=== PATIENT | female | born 1945 | race Caucasian/White ===

== ENCOUNTER 2016-10-03 14:53 | Emergency (ER) | payer OTHER ==
[~2016-10-03] VITALS: Ht 160 cm; Wt 70.0 kg
[2016-10-03 14:55] VITALS: BP 202/90; PULSE 67; RESP 18; TEMP 97.9; O2SAT 100
[2016-10-03 15:20] VITALS: O2SAT 100
[2016-10-03 15:21] VITALS: BP 204/98; PULSE 67; RESP 18; O2SAT 99
[2016-10-03] MEDS ORDERED: ROSU10 PO (15:28)
[2016-10-03] MEDS ORDERED: NAPR500T PO (15:28)
[2016-10-03] MEDS ORDERED: [UNRECOGNIZED DRUG - CODE] (15:28)
[2016-10-03] MEDS ORDERED: LACT1CAP18 (15:28)
[2016-10-03] MEDS ORDERED: LISI40TA PO (15:28)
[2016-10-03] MEDS ORDERED: MISO100T22 (15:28)
[2016-10-03] MEDS ORDERED: METO100T PO (15:28)
[2016-10-03] MEDS ORDERED: TRIA37.53 PO (15:28)
[2016-10-03] MEDS ORDERED: VITA20003 (15:28)
[2016-10-03] MEDS ORDERED: LUTE6TAB2 (15:28)
[2016-10-03] MEDS ORDERED: RANI150T PO (15:28)
[2016-10-03] MEDS ORDERED: TRAV0.00 EACH EYE (15:28)
[2016-10-03] MEDS ORDERED: SODIUM CHLOR 0.9% 1000 ML INJ 1,000 ML IV SCH (15:40)
[2016-10-03 15:49] LABS: BASOPHIL # 0.1 TH/MM3 (0-0.2); EOSINOPHIL # 0.4 TH/MM3 (0-0.4); EOSINOPHIL % 5.1 % (0.0-4.0); HEMATOCRIT 38.1 % (35.0-46.0); HEMO FLAGS DIFF FINAL; LYMPH % 25.5 % (9.0-44.0); LYMPHOCYTE # 1.8 TH/MM3 (1.0-4.8); MEAN CELL VOLUME 91.5 FL (80.0-100.0); MEAN CORPUSCULAR HEMOGLOBIN 30.4 PG (27.0-34.0); MEAN CORPUSCULAR HGB CONC 33.2 % (32.0-36.0); MONO % 10.8 % (0.0-8.0); NEUT % 57.6 % (16.0-70.0); PLATELET COUNT 244 TH/MM3 (150-450); RED BLOOD COUNT 4.16 MIL/MM3 (4.00-5.30); RED CELL DISTRIBUTION WIDTH 14.4 % (11.6-17.2)
[2016-10-03 15:57] LABS: BLOOD, URINE NEG (NEG); COMMENT (UR) CULT NOT INDICATED; CULTURE IF INDICATED CULT NOT INDICATED; GLUCOSE,URINE NEG (NEG); KETONE, URINE NEG (NEG); NITRITE,URINE NEG (NEG); URINE COLOR YELLOW (YELLW/STRAW)
[2016-10-03 16:01] LABS: ANION GAP 3 MEQ/L (5-15); BICARBONATE 31.6 MEQ/L (21.0-32.0); BLOOD UREA NITROGEN 16 MG/DL (7-18); CHLORIDE 106 MEQ/L (98-107); GLOMERULAR FILTRATION RATE 66 ML/MIN (>89); MAGNESIUM 2.1 MG/DL (1.5-2.5); POTASSIUM 3.8 MEQ/L (3.5-5.1); SODIUM (NA) 141 MEQ/L (136-145)
--- NOTE | 2016-10-03 16:12 | RADRPT ---
EXAM DATE/TIME: 10/03/2016 15:35 [place] COMPARISON: No previous studies available for comparison. INDICATIONS : Chest tightness, palpitations MEDICAL HISTORY : Hypercholesterolemia. SURGICAL HISTORY : Cholecystectomy. ENCOUNTER: Initial ACUITY: 1 day PAIN SCORE: 5/10 LOCATION: Bilateral chest FINDINGS: A single view of the chest demonstrates the lungs to be symmetrically aerated without evidence of mas s, infiltrate or effusion. The cardiomediastinal contours are unremarkable. Osseous structures are intact. Clips are seen in the right upper quadrant of the abdomen. CONCLUSION: No acute disease. Donal Noble MD on October 03, 2016 at 16:09 Board Certified Radiologist. This report was verified electronically.
[2016-10-03 16:18] LABS: CREATINE KINASE 57 U/L (26-192)
[2016-10-03 16:19] VITALS: BP 159/74; PULSE 62; RESP 17; O2SAT 98
--- NOTE | 2016-10-03 16:20 | PD ---
HPI Chief Complaint: Abnormal Results Time Seen by Provider: 16:15 Travel History International Travel<30 days: No Contact w/Intl Traveler<30days: No Traveled to known affect area: No History of Present Illness HPI 71-year-old female that presents to the ED for evaluation of abnormal results. Per patient she had blood work yesterday at a local laboratory hearing [facility] and her doctor called her today very concerned about her blood values. Per patient she was told that her potassium is 10, her sodium was in the 110s, her BUN in the 100s and her creatinine on the 20s. She states that she has had no urinary issues. No bowel movement issues. She states compliance with her blood pressure medications. She states that she's had some chest discomfort on and off for months and she follows with her physical education department chair for this. She denies any back pain. No abdominal pain. No nausea or vomiting. No fevers chills or sweats. She takes no potassium more vitamin supplements. She does take blood pressure medications, cholesterol medication and has no history of diabetes. No history of kidney issues. PFSH Past Medical History Hx Anticoagulant Therapy: Yes (asa) Arthritis: Yes Cardiovascular Problems: Yes (htn, OR) High Cholesterol: Yes Diminished Hearing: No Diverticulitis: Yes GERD: Yes Myocardial Infarction: Yes Influenza Vaccination: Yes ?: Not Past Surgical History Appendectomy: Yes Section: Yes (x1) Cholecystectomy: Yes Hysterectomy: Yes Other Surgery: Yes (colostomy/colostomy removal, hernia sx) Social History Alcohol Use: No Tobacco Use: No Substance Use: No Allergies-Medications (Allergen,Severity, Reaction): Coded Allergies: Penicillin (Verified Allergy, Severe, closed throat, 10/03/16) Codeine (Verified Allergy, Intermediate, headache dizzy, 10/03/16) Iodine (Verified Allergy, Intermediate, rash, 10/03/16) Reported Meds & Prescriptions Reported Meds & Active Scripts Active Reported Metoprolol Tartrate 100 Mg Tab 100 Mg PO DAILY Triamterene-Hydrochlorothiazide 37.5-25 Mg Cap 1 Cap PO DAILY Probiotic (Lactobacillus Combo No.10) 1 Each Capsule Lutein 6 Mg Tab Vitamin D (Cholecalciferol) 2,000 Unit Tab 5,000 Estradiol Transdermal Patch (Estradiol) 1 Each Patch.tdwk Travatan Z Opth Drops (Travoprost) 0.004 % Soln 1 Drop EACH EYE HS Crestor (Rosuvastatin Calcium) 10 Mg Tab 10 Mg PO DAILY Naproxen 500 Mg Tab 500 Mg PO BID Ranitidine (Ranitidine HCl) 150 Mg Tab 150 Mg PO BID Lisinopril 40 Mg Tab 40 Mg PO DAILY Review of Systems Except as stated in HPI: all other systems reviewed are Neg Physical Exam Narrative GENERAL: SKIN: Warm and dry. HEAD: Atraumatic. Normocephalic. EYES: Pupils equal and round. No scleral icterus. No injection or drainage. ENT: No nasal bleeding or discharge. Mucous membranes pink and moist. Tongue is midline. No uvula deviation. NECK: Trachea midline. No JVD. CARDIOVASCULAR: Regular rate and rhythm. No murmurs, S3, S4. RESPIRATORY: No accessory muscle use. Clear to auscultation. Breath sounds equal bilaterally. GASTROINTESTINAL: Abdomen soft, non-tender, nondistended. Hepatic and splenic margins not palpable. MUSCULOSKELETAL: Extremities without clubbing, cyanosis, or edema. No obvious deformities. Full range of motion of the upper and lower extremities bilaterally. 2+ pulses bilaterally. NEUROLOGICAL: Awake and alert. No obvious cranial nerve deficits. Motor grossly within normal limits. Five out of 5 muscle strength in the arms and legs. Normal speech. PSYCHIATRIC: Appropriate mood and affect; insight and judgment normal. Data Data Last Documented VS Vital Signs Date Time Temp Pulse Resp B/P Pulse Ox O2 Delivery O2 Flow Rate FiO2 10/03/16 15:21 67 18 204/98 99 Room Air 10/03/16 14:55 97.9 Orders Electrocardiogram (10/03/16 15:16) Complete Blood Count With Diff (10/03/16 15:16) Basic Metabolic Panel (Bmp) (10/03/16 15:16) Ckmb (Isoenzyme) Profile (10/03/16 15:16) Troponin I (10/03/16 15:16) Urinalysis - C+S If Indicated (10/03/16 15:16) Magnesium (Mg) (10/03/16 15:16) Chest, Single Ap (10/03/16 15:16) Iv Access Insert/Monitor (10/03/16 15:16) Ecg Monitoring (10/03/16 15:16) Oximetry (10/03/16 15:16) Sodium Chlor 0.9% 1000 Ml Inj (Ns 1000 M (10/03/16 15:40) Labs Laboratory Tests Test 10/03/16 10/03/16 15:29 15:39 White Blood Count 7.0 TH/MM3 Red Blood Count 4.16 MIL/MM3 Hemoglobin 12.6 GM/DL Hematocrit 38.1 % Mean Corpuscular Volume 91.5 FL Mean Corpuscular Hemoglobin 30.4 PG Mean Corpuscular Hemoglobin 33.2 % Concent Red Cell Distribution Width 14.4 % Platelet Count 244 TH/MM3 Mean Platelet Volume 8.4 FL Neutrophils (%) (Auto) 57.6 % Lymphocytes (%) (Auto) 25.5 % Monocytes (%) (Auto) 10.8 % Eosinophils (%) (Auto) 5.1 % Basophils (%) (Auto) 1.0 % Neutrophils # (Auto) 4.0 TH/MM3 Lymphocytes # (Auto) 1.8 TH/MM3 Monocytes # (Auto) 0.8 TH/MM3 Eosinophils # (Auto) 0.4 TH/MM3 Basophils # (Auto) 0.1 TH/MM3 CBC Comment DIFF FINAL Differential Comment Sodium Level 141 MEQ/L Potassium Level 3.8 MEQ/L Chloride Level 106 MEQ/L Carbon Dioxide Level 31.6 MEQ/L Anion Gap 3 MEQ/L Blood Urea Nitrogen 16 MG/DL Creatinine 0.84 MG/DL Estimat Glomerular Filtration 66 ML/MIN Rate Random Glucose 91 MG/DL Calcium Level 9.0 MG/DL Magnesium Level 2.1 MG/DL Urine Color YELLOW Urine Turbidity CLEAR Urine pH 7.0 Urine Specific [place] 1.008 Urine Protein NEG mg/dL Urine Glucose (UA) NEG mg/dL Urine Ketones NEG mg/dL Urine Occult Blood NEG Urine Nitrite NEG Urine Bilirubin NEG Urine Urobilinogen LESS THAN 2.0 MG/DL Urine Leukocyte Esterase NEG Urine RBC LESS THAN 1 /hpf Urine WBC LESS THAN 1 /hpf Microscopic Urinalysis Comment CULT NOT INDICATED MDM Medical Decision Making Medical Screen Exam Complete: Yes Emergency Medical Condition: Yes Medical Record Reviewed: Yes Interpretation(s) EKG shows sinus rhythm with no sign of acute ischemia or arrhythmia. Read by me and attending. Troponin and CK-MB negative. CBC & BMP Diagram 10/03/16 15:29 UA negative Differential Diagnosis Abnormal labs versus kidney failure versus normal exam versus chest pain versus ACS versus a typical chest pain Narrative Course 71-year-old female that presents to the ED for evaluation of abnormal results. Patient was properly examined and was found to have signs and symptoms concerning for no one results. Patient appears to be in acute distress. She does complain of some chest discomfort that she's had for a couple months and followed by a physical education department chair. She denies any other symptom. Labs and imaging will be ordered. Patient was given 1 L of saline. Labs and imaging here showed no sign of acute disease. EKG is normal with no sign of ST elevations or more importantly hyperkalemic changes. Patient's blood works unremarkable. This appears to be laboratory error. Patient was ressured. Follow up with PCP. See ED if worst. Continue taking meds as prescribed by your doctor. Diagnosis Primary Impression: Atypical chest pain Patient Instructions: General Instructions Additional Instructions: Follow-up with your doctor. See ED for any worsening symptoms. Continue taking medications as prescribed by your doctor. Med/Other Pt SpecificInfo: No Change to Meds Disposition: 01 DISCHARGE HOME Condition: Stable Peter Izaguirre Oct 03, 2016 16:20
--- NOTE | 2016-10-03 18:04 | PD ---
Data Data Last Documented VS Vital Signs Date Time Temp Pulse Resp B/P Pulse Ox O2 Delivery O2 Flow Rate FiO2 10/03/16 16:19 62 17 159/74 98 Room Air 10/03/16 14:55 97.9 Orders Electrocardiogram (10/03/16 15:16) Complete Blood Count With Diff (10/03/16 15:16) Basic Metabolic Panel (Bmp) (10/03/16 15:16) Ckmb (Isoenzyme) Profile (10/03/16 15:16) Troponin I (10/03/16 15:16) Urinalysis - C+S If Indicated (10/03/16 15:16) Magnesium (Mg) (10/03/16 15:16) Chest, Single Ap (10/03/16 15:16) Iv Access Insert/Monitor (10/03/16 15:16) Ecg Monitoring (10/03/16 15:16) Oximetry (10/03/16 15:16) Sodium Chlor 0.9% 1000 Ml Inj (Ns 1000 M (10/03/16 15:40) Labs Laboratory Tests Test 10/03/16 10/03/16 15:29 15:39 White Blood Count 7.0 TH/MM3 Red Blood Count 4.16 MIL/MM3 Hemoglobin 12.6 GM/DL Hematocrit 38.1 % Mean Corpuscular Volume 91.5 FL Mean Corpuscular Hemoglobin 30.4 PG Mean Corpuscular Hemoglobin 33.2 % Concent Red Cell Distribution Width 14.4 % Platelet Count 244 TH/MM3 Mean Platelet Volume 8.4 FL Neutrophils (%) (Auto) 57.6 % Lymphocytes (%) (Auto) 25.5 % Monocytes (%) (Auto) 10.8 % Eosinophils (%) (Auto) 5.1 % Basophils (%) (Auto) 1.0 % Neutrophils # (Auto) 4.0 TH/MM3 Lymphocytes # (Auto) 1.8 TH/MM3 Monocytes # (Auto) 0.8 TH/MM3 Eosinophils # (Auto) 0.4 TH/MM3 Basophils # (Auto) 0.1 TH/MM3 CBC Comment DIFF FINAL Differential Comment Sodium Level 141 MEQ/L Potassium Level 3.8 MEQ/L Chloride Level 106 MEQ/L Carbon Dioxide Level 31.6 MEQ/L Anion Gap 3 MEQ/L Blood Urea Nitrogen 16 MG/DL Creatinine 0.84 MG/DL Estimat Glomerular Filtration 66 ML/MIN Rate Random Glucose 91 MG/DL Calcium Level 9.0 MG/DL Magnesium Level 2.1 MG/DL Total Creatine Kinase 57 U/L Troponin I LESS THAN 0.02 NG/ML Urine Color YELLOW Urine Turbidity CLEAR Urine pH 7.0 Urine Specific [place] 1.008 Urine Protein NEG mg/dL Urine Glucose (UA) NEG mg/dL Urine Ketones NEG mg/dL Urine Occult Blood NEG Urine Nitrite NEG Urine Bilirubin NEG Urine Urobilinogen LESS THAN 2.0 MG/DL Urine Leukocyte Esterase NEG Urine RBC LESS THAN 1 /hpf Urine WBC LESS THAN 1 /hpf Microscopic Urinalysis Comment CULT NOT INDICATED [facility] Supervised Visit with RONNIE: Yes Narrative Course The history, exam, and medical decision-making in the associated midlevel provider note were completed with my assistance. I reviewed and agree with the findings presented. I attest that I had a [id number] encounter with the patient on the same day, and personally performed and documented my assessment and findings in the medical record. *My assessment and Findings: This is a 71-year-old female who presents to the emergency department with abnormal labs at an outpatient lab Center having a reported elevated BUN, creatinine and a potassium of 10. Here labs are totally normal and she appears well. She was discharged home. Diagnosis Primary Impression: Atypical chest pain Patient Instructions: General Instructions, Noncardiac Chest Pain (ED) Departure Forms: Tests/Procedures Additional Instruction: Follow-up with your doctor. See ED for any worsening symptoms. Continue taking medications as prescribed by your doctor. Disposition: 01 DISCHARGE HOME Condition: Stable Sienna Mccoy MD Oct 03, 2016 18:04
--- NOTE | 2016-10-04 13:18 | EKG ---
Date Performed: 10/03/2016 Time Performed: 15:24:07 PTAGE: 71 years EKG: Sinus rhythm POSSIBLE LEFT ATRIAL ENLARGEMENT NONSPECIFIC T-WAVE ABNORMALITY BORDERLINE ECG NO PREVIOUS TRACING DOCTOR: Antonette Barcenas Interpretating Date/Time 10/04/2016 13:17:35
== END 2016-10-03 17:10 | disposition home or self-care (01) ==
LOC: NEPE 14:53
DX: R07.89 Other chest pain (principal); R94.31 Abnormal electrocardiogram [ECG] [EKG]; E78.00 Pure hypercholesterolemia, unspecified; I25.2 Old myocardial infarction; Z79.82 Long term (current) use of aspirin; Z87.39 Personal history of other diseases of the musculoskeletal system and connective tissue; Z86.79 Personal history of other diseases of the circulatory system; Z87.19 Personal history of other diseases of the digestive system
CPT/HCPCS: 71010; 80048; 81001; 82550; 83735; 84484; 85025; 93005; 96360; 99285; J7030